=== PATIENT | female | born 1990 | race Asian ===

== ENCOUNTER 2021-01-13 11:58 | Emergency (ER) | payer OTHER ==
[~2021-01-13] VITALS: Ht 165.1 cm; Wt 80.3 kg
[2021-01-13 13:05] VITALS: BP 141/69; TEMP 96.6
== END 2021-01-13 13:05 | disposition home or self-care (01) ==
LOC: ED 11:58
DX: M54.5 Low back pain (principal); G89.29 Other chronic pain; X50.9XXA Other and unspecified overexertion or strenuous movements or postures, initial encounter; Y93.F2 Activity, caregiving, lifting; Y92.89 Other specified places as the place of occurrence of the external cause
CPT/HCPCS: 96372; 99283; J1885; J2930

== ENCOUNTER 2021-02-10 17:28 | Emergency (ER) | payer OTHER ==
[~2021-02-10] VITALS: Ht 165.1 cm; Wt 80.3 kg
[2021-02-10 17:38] VITALS: TEMP 99.7
[2021-02-10 18:11] VITALS: BP 132/80
== END 2021-02-10 18:12 | disposition home or self-care (01) ==
LOC: ED 17:28
DX: M54.5 Low back pain (principal); G89.29 Other chronic pain; Z87.828 Personal history of other (healed) physical injury and trauma
CPT/HCPCS: 96372; 99283; J1885; J2930

== ENCOUNTER 2021-04-20 15:57 | Emergency (ER) | payer OTHER ==
[~2021-04-20] VITALS: Ht 162.6 cm; Wt 82.1 kg
[2021-04-20 16:10] VITALS: BP 134/77; TEMP 98.6
[2021-04-20 17:24] LABS: PLATELET COUNT 238 K/uL (152-353)
[2021-04-20 17:37] LABS: PARTIAL THROMBOPLASTIN TIME 26.3 SECONDS (24.5-33.6)
== END 2021-04-20 18:33 | disposition home or self-care (01) ==
LOC: ED 15:57
PROVIDERS: Emergency Medicine
DX: N93.8 Other specified abnormal uterine and vaginal bleeding (principal); N92.0 Excessive and frequent menstruation with regular cycle
CPT/HCPCS: 36415; 85027; 85610; 85730; 99284